=== PATIENT | female | born 1965 | race Caucasian/White ===

== ENCOUNTER 2021-01-12 22:41 | Emergency (ER) | payer BC, OTHER, SELFPAY ==
[2021-01-12 22:47] VITALS: BP 147/72; PULSE 91; RESP 16; TEMP 36.4; O2SAT 96; BMI 29.7
--- NOTE | 2021-01-12 22:50 | DI.RAD.S_ITS ---
PROCEDURE: XR HUMERUS RT 2V INDICATIONS: fall, extreme pain TECHNIQUE: 2 views of the humerus were acquired. COMPARISON: None. FINDINGS: Bones: Comminuted fracture of the right humerus with large butterfly fragment measuring approximately 8.7 cm. Soft tissues: No suspicious soft tissue calcifications. IMPRESSION: Comminuted mid right humeral fracture. Dictated by: Matt Bee M.D. on 01/12/2021 at 23:20 Approved by: Matt Bee M.D. on 01/12/2021 at 23:21
[2021-01-12 23:14] VITALS: PULSE 79; O2SAT 93
[2021-01-12 23:30] VITALS: BP 104/55; PULSE 81; O2SAT 96
--- NOTE | 2021-01-12 23:35 | ED.UPPEXIN ---
HPI - Extremity Injury (Upper) General Chief Complaint: Extremity Injury, Upper Stated Complaint: Fell on Arm Time Seen by Provider: 01/12/21 23:08 Source: patient and EMS Mode of arrival: EMS Limitations: no limitations History of Present Illness HPI narrative: 55-year-old woman with medical history presents after falling getting out of a hot tub. She had been drinking some alcohol tonight was somewhat unsteady hit the right humerus again side of a wall and is having significant pain and unable to lift her arm. Wrist has no abnormalities and she is otherwise neurovascularly intact distally. She was brought in by medics and given fentanyl EN route. Still having significant amount of pain but still slightly intoxicated with alcohol Related Data Previous Rx's Medication Instructions Recorded oxycodone-acetaminophen 5 mg-325 1 tab PO Q6H PRN #20 tab 01/13/21 mg tablet Allergies Allergy/AdvReac Type Severity Reaction Status Date / Time No Known Drug Allergies Allergy Verified 01/12/21 22:50 Review of Systems Review of Systems Narrative: Pertinent positive and negative findings as per HPI Remainder of review of systems is otherwise unremarkable for Constitutional: Fevers, chills, weakness ENT: No sore throat, neck pain, ear pain CV: Chest pain, palpitations, Respiratory: Cough, wheeze, dyspnea GI: Nausea, vomiting, diarrhea, : Dysuria, hematuria, Patient History Social History Smoking Status: Current every day smoker Smoking Status: Current every day smoker alcohol intake frequency: 3 or more drinks per day Substance Use Type: does not use Exam Narrative Exam Narrative: General: Alert, mildly intoxicated in significant distress with her upper arm pain. Respiratory: Able to speak in full sentences, no obvious respiratory distress Skin: No obvious rashes, warm and dry Neurologic: Grossly intact no obvious asymmetries or abnormalities Psych: appropriate insight and affect, cooperative Extremity: Swelling and mild medial upper arm ecchymosis developing. She does have normal range of motion at the elbow and the wrist. Neurovascularly intact. There is no shoulder tenderness or abnormalities. Initial Vital Signs Initial Vital Signs: Vital Signs Temperature 97.6 F 01/12/21 22:47 Pulse Rate 91 H 01/12/21 22:47 Respiratory Rate 16 01/12/21 22:47 Blood Pressure 147/72 H 01/12/21 22:47 Pulse Oximetry 96 01/12/21 22:47 Procedures Orthopedic Fracture Reduction Right humerus: Time of procedure: 00:37 Time Out Performed: Yes Side: right Fracture Reduction Location: humerus Analgesia: procedural sedation Technique: direct manipulation and traction/counter-traction Post Reduction X-rays Demonstrate: acceptable reduction Post-reduction neuro exam: intact Post-reduction vascular exam: intact Splint Applied: Yes Patient Tolerated Procedure: Well Orthopedic Splinting/Casting Right humerus: Time of procedure: 00:38 Side: right Upper Extremity Injury Location: upper arm Upper Extremity Immobilizer: sling/shoulder immobilizer, posterior splint and sugar tong splint Post splinting neuro exam: intact Post splinting vascular exam: intact Placed by: Provider Procedural Sedation Time of procedure: 00:39 Consent signed: No Time out performed: Yes Indication: fracture/dislocation reduction ASA Class: III Mallampati Airway Classification: Class II Preparation: manager monitoring applied, pulse oximeter, capnometry used, supplemental O2 applied, suction/airway equipment at bedside and IV secured Ketamine dose (mg): 170 Intraservice time/total sedation time (min): 14 ED Sedation Level: Moderate (Concious) Patient Tolerated Procedure: Well Complications: Respiratory Depression-Repositioning Required Course Orders Ordered: ED Orders 01/12/21 22:50 XR humerus RT 2V Stat 01/12/21 23:48 COVID19 -Nasal swab/Pre-Proc Stat 01/13/21 XR shoulder RT 1V Stat Discontinued Medications Ketorolac Tromethamine (Ketorolac 30 Mg/Ml Vial) 15 mg IV NOW ONE Stop: 01/12/21 23:52 Last Admin: 01/12/21 23:54 Dose: 15 mg Documented by: TED Ondansetron HCl (Ondansetron 4 Mg/2 Ml Inj) 4 mg IV NOW ONE Stop: 01/13/21 00:52 Last Admin: 01/13/21 00:52 Dose: 4 mg Documented by: TED Oxycodone/Acetaminophen (Oxycodone/Acetaminophen 5/325 Tablet) 2 tab PO NOW ONE Stop: 01/13/21 00:45 Last Admin: 01/13/21 00:49 Dose: 2 tab Documented by: TED Oxycodone/Acetaminophen (Oxycodone/Apap 5/325 Prepack) 1 bottle MISC SEEINSTR ONE Stop: 01/13/21 00:45 Last Admin: 01/13/21 00:49 Dose: 1 bottle Documented by: TED Vital Signs Vital signs: Vital Signs - 8 hr 01/12/21 22:47 01/12/21 23:14 01/12/21 23:30 Temperature 97.6 F Pulse Rate 91 H 79 81 Respiratory Rate 16 Blood Pressure 147/72 H 104/55 L Pulse Oximetry 96 93 96 01/12/21 23:38 01/13/21 00:00 01/13/21 00:20 Temperature Pulse Rate 84 79 122 H Respiratory Rate 24 20 Blood Pressure 113/70 110/57 L 137/71 Pulse Oximetry 94 96 100 01/13/21 00:29 01/13/21 00:30 01/13/21 00:31 Temperature Pulse Rate 84 105 H 95 H Respiratory Rate 16 22 17 Blood Pressure 158/75 H Pulse Oximetry 100 100 01/13/21 00:35 01/13/21 01:00 Temperature Pulse Rate 93 H 99 H Respiratory Rate 21 18 Blood Pressure 173/81 H Pulse Oximetry 100 96 MDM - Extremity Injury (Upper) Lab Data Labs: Lab Results 01/12/21 Range/Units 23:48 SARS-CoV-2 (PCR) Negative (Negative) Point of Care Testing Test Results Negative Imaging Data X-ray humerus: Radiologist's Impression: FINDINGS: Bones: Comminuted fracture of the right humerus with large butterfly fragment measuring approximately 8.7 cm. Soft tissues: No suspicious soft tissue calcifications. IMPRESSION: Comminuted mid right humeral fracture. Dictated by: Matt Bee M.D. on 01/12/2021 at 23:20 MDM Narrative Medical decision making narrative: 55-year-old woman with a complex comminuted right humeral fracture with joints spared. With ketamine sedation an attempt was made to reapproximate and better align the edges and a posterior and sugar-tong splint were placed. Patient tolerated the procedure well. She will be discharged home. Care and post reduction films are reviewed with Dr. Moreno, orthopedic surgeon. Agrees with home discharge and office follow-up. Discharge Plan Departure Patient Disposition: Home Clinical Impression: Fracture of humerus Qualifiers: Encounter type: initial encounter Humerus Location: shaft Fracture type: closed Fracture morphology: comminuted Fracture alignment: displaced Laterality: right Qualified Code(s): S42.351A - Displaced comminuted fracture of shaft of humerus, right arm, initial encounter for closed fracture Instructions: Humeral Shaft Fracture Activity Restrictions/Additional Instructions: I am sorry that you broke your arm tonight Your given ketamine in the emergency room to reapproximate the edges and put a splint in place This is going to be a painful fracture. Using 400 mg of ibuprofen (2 [id number] pills) and 1 Tylenol every 6 hours can be very helpful in controlling pain. For severe pain 400 mg of ibuprofen and 1 Percocet and for extreme pain 400 mg of ibuprofen and 2 Percocet Do not mix Percocet and alcohol, you will stop breathing and Percocet will cause constipation, make sure you at a stool softener to prevent this You will need to follow-up with Dr. Moreno at [facility]. Office phone number is [phone]. With your office visit she will re-x-ray the arm and help decide with the next steps will be. I hope you heal quickly Prescriptions: New oxycodone-acetaminophen 5-325 mg tablet 1 tab PO Q6H PRN (Reason: pain) Qty: 20 RF: 0
[2021-01-12 23:38] VITALS: BP 113/70; PULSE 84; O2SAT 94
[2021-01-12] MEDS: KETOROLAC 30 MG/ML VIAL 15 MG IV (23:54)
[2021-01-13] VITALS (7 sets, daily range): BP systolic 110–173; BP diastolic 57–81; PULSE 79–122; RESP 16–24; O2SAT 96–100
--- NOTE | 2021-01-13 | DI.RAD.S_ITS ---
PROCEDURE: XR SHOULDER RT 1V INDICATIONS: POST REDUCTION TECHNIQUE: Single views of the shoulder were acquired. COMPARISON: [facility], , XR HUMERUS RT 2V, 01/12/2021, 22:59. FINDINGS: Bones: There is persistent medial angulation of the dominant distal fragment of comminuted right humeral fracture, status post reduction. Large butterfly fragment again noted. Soft tissues: No suspicious soft tissue calcifications. IMPRESSION: Persistent medial angulation of distal dominant fracture fragment of the right humeral fracture. Dictated by: Matt Bee M.D. on 01/13/2021 at 0:43 Approved by: Matt Bee M.D. on 01/13/2021 at 0:44
[2021-01-13 00:07] LABS: COVID19 -Nasal RAPID Negative (Negative)
[2021-01-13] MEDS: KETAMINE 50 MG/5 ML *SYRINGE 170 MG IV (00:15)
[2021-01-13] MEDS: OXYCODONE/APAP 5/325 PREPACK 1 BOTTLE MISC (00:49)
[2021-01-13] MEDS: OXYCODONE/ACETAMINOPHEN 5/325 TABLET 2 TAB PO (00:49)
[2021-01-13] MEDS: ONDANSETRON 4 MG/2 ML INJ IV (00:52)
== END 2021-01-13 01:46 | disposition home or self-care (01) ==
PROVIDERS: Emergency Provider Emergency Medicine
DX: S42.351A Displaced comminuted fracture of shaft of humerus, right arm, initial encounter for closed fracture (principal); W19.XXXA Unspecified fall, initial encounter; Z20.822 Contact with and (suspected) exposure to COVID-19
CPT/HCPCS: 24505; 73020; 73060; 87635; 96374; 96375; 99152; 99284; 99285; C9803; J1885; J2405